=== PATIENT | female | born 1970 | race Two or more races ===

== ENCOUNTER 2018-05-28 09:43 | Outpatient (CLI) | payer OTHER | END 2018-05-28 09:45 | disposition home or self-care (01) | LOC: SONOGRAMA 09:43 | DX: R59.0 Localized enlarged lymph nodes (principal) ==

== ENCOUNTER 2019-07-31 05:50 | Day surgery (SDC) | payer OTHER | END 2019-07-31 10:45 | disposition home or self-care (01) | LOC: AMB-ENDOS 05:50 → ADM 13:00 | DX: K31.7 Polyp of stomach and duodenum (principal); K44.9 Diaphragmatic hernia without obstruction or gangrene; K29.60 Other gastritis without bleeding ==

== ENCOUNTER 2020-09-03 06:00 | Day surgery (SDC) | payer OTHER | END 2020-09-03 14:30 | disposition home or self-care (01) | LOC: AMB-ENDOS 06:00 | PROVIDERS: ATTEND Surgery | DX: K62.89 Other specified diseases of anus and rectum (principal); K64.8 Other hemorrhoids; Z12.11 Encounter for screening for malignant neoplasm of colon; Z20.822 Contact with and (suspected) exposure to COVID-19 ==